=== PATIENT | female | born 1980 | race Two or more races ===

== ENCOUNTER → 2020-02-20 08:00 | Outpatient (CLI) | payer OTHER | END | disposition home or self-care (01) | LOC: ADM 07:45 → LAB 08:00 → EDSTATUS 02-27 07:45 → CIR.AMB 02-27 07:45 | PROVIDERS: ATTEND Specialist | DX: K80.10 Calculus of gallbladder with chronic cholecystitis without obstruction (principal); Z20.828 Contact with and (suspected) exposure to other viral communicable diseases; Z11.59 Encounter for screening for other viral diseases ==